=== PATIENT | female | born 1980 | race Caucasian/White ===

== ENCOUNTER 2017-05-26 19:41 | Inpatient (IN) | payer MEDICAID ==
[2017-05-26] MEDS ORDERED: LACTATED RINGERS 500 ML IV ONE (20:02)
[2017-05-26] MEDS ORDERED: ZOFRAN IV PRN (22:02)
[2017-05-26] MEDS ORDERED: MILK OF MAGNESIA PO PRN (22:02)
[2017-05-26] MEDS ORDERED: COLACE PO PRN (22:02)
[2017-05-26] MEDS ORDERED: TYLENOL PO PRN (22:02)
[2017-05-26] MEDS ORDERED: POLYCILLIN/NS 2 GM/100 ML 2 GM/100 ML BAG IV ONE (22:02)
--- NOTE | 2017-05-26 22:06 | Ultrasound Report ---
FINAL REPORT PROCEDURE: Obstetrical ultrasound. TECHNIQUE: Real-time transabdominal sonography of the uterus, placenta, amniotic fluid, adnexa, and fetus was performed with image documentation. Measurements were obtained to determine age/size. M-mode Doppler was used to document heartbeat. CPT 68474 HISTORY: No care for 6 weeks, was in [place], estimated weight and amniotic fluid index. labor. COMPARISON: No prior studies are available for comparison. FINDINGS: There is a single intrauterine fetus in cephalic presentation. Cardiac activity is documented at 135 beats per minute. There are no obvious congenital anomalies. A detailed anatomical survey was not performed. The amniotic fluid volume appears decreased. The amniotic fluid index measures 3.7 centimeters. The placenta is anterior in location, grade 0, with no evidence of placenta previa. The cervical length is approximately 3.3 centimeters. The measured parameters are as follows: Biparietal diameter 8.4 centimeters, head circumference 31.1 centimeters, abdominal circumference 29.3 centimeters, femur length 6.6 centimeters. The calculated menstrual age is 34 weeks 0 days. The estimated date of confinement is 07/07/2017. The estimated weight is 2244 grams. IMPRESSION: Single viable fetus in cephalic presentation with a menstrual age of 34 weeks 0 days. Oligohydramnios.
--- NOTE | 2017-05-26 22:08 | Ultrasound Report ---
FINAL REPORT PROCEDURE: Ultrasound biophysical profile without nonstress test. TECHNIQUE: Sonographic evaluation for breathing, movement, tone, and amniotic fluid volume was performed. CPT 11415 HISTORY: No movement. COMPARISON: No prior studies are available for comparison. FINDINGS: Amniotic fluid volume: 2. breathin. movement: 0. tone: 0. Score: 4 out of 8. IMPRESSION: Abnormally low biophysical profile.
--- NOTE | 2017-05-26 22:11 | History and Physical Report ---
History of Present Illness Date of examination: 05/26/17 Date of admission: 05/26/17 20:46 Chief complaint: Decreased movement History of present illness: Pt is a 36yo HF EDC 07/15/17; EGA 32 6/7 weeks presents to [facility] from the office for complaints of decreased movement. She received care at [facility] since 9 weeks, and course has been complicated by AMA, Obesity and Gestational DM. She recently returned from [place] and complained of decreased movement. BPP 4/8 Past History Past Medical History: diabetes (diet controlled) Past Surgical History: no surgical history Family/Genetic History: none Social history: no significant social history, single - Obstetrical History Expected Date of Delivery: 07/15/17 Actual Gestation: 33 Week(s) 0 Day(s) : 3 Medications and Allergies Allergies Allergy/AdvReac Type Severity Reaction Status Date / Time No Known Allergies Allergy Unverified 05/26/17 19:42 Review of Systems All systems: negative - Physical Exam Breasts: Positive: deferred Cardiovascular: Regular rate - Obstetrical FHR: category 1 Uterine Contraction Pattern: Irregular Results Result Diagrams: 05/26/17 22:10 05/26/17 22:10 Abnormal lab results 05/26/17 Range/Units 20:04 POC Glucose 123 H (70-105) All other labs normal. Ultrasound: report reviewed ([place], cephalic, EFW 2244gms, LAURA 3.66, BPP 4/8 ) Assessment and Plan - Patient Problems (1) 33 weeks gestation of Onset Date: 05/26/17 Current Visit: Yes Status: Acute Plan to address problem: A: IUP @ 33 0/7 weeks Oligohydramnios Diabetes mellitus -Type 2 - uncontrolled Non-reassuring surveillance with reactive NST P: Admit to L&D for Observation Begin IV fluids, antibiotics and steroids Repeat BPP with LAURA in am Deliver with worsening surveillance (2) Oligohydramnios in [place] in third trimester Onset Date: 05/26/17 Current Visit: Yes Status: Acute (3) Diabetes mellitus affecting in third trimester Onset Date: 05/26/17 Current Visit: Yes Status: Acute
[2017-05-26] MEDS: CELESTONE SOLUSPAN IM SCH (22:42)
[2017-05-26 23:00] LABS: Basophils % (Auto) 0.2 % (0.0-1.8); Eosinophils % (Auto) 0.7 % (0.0-4.3); Hematocrit 40.5 % (30.3-42.9); Hemoglobin 13.8 gm/dl (10.1-14.3); Mean Corpuscular HGB Conc 34 % (30-34); Mean Corpuscular Hemoglobin 31 pg (28-32); Mean Corpuscular Volume 90 fl (79-97); Platelet Count 164 K/mm3 (140-440); Red Cell Distribution Width 14.9 % (13.2-15.2)
[2017-05-26] MEDS: LACTATED RINGERS 1,000 ML IV SCH (23:00)
[2017-05-26 23:26] LABS: Anion Gap 20 mmol/L; Blood Urea Nitrogen 10 mg/dL (7-17); Calcium 9.3 mg/dL (8.4-10.2); Carbon Dioxide 20 mmol/L (22-30); Chloride 104.7 mmol/L (98-107); Glucose 101 mg/dL (65-100); Sodium 141 mmol/L (137-145)
[2017-05-27] MEDS: POLYCILLIN/NS 1 GM/50 ML 1 GM/50 ML BAG IV SCH ×6 (03:39→22:06)
[2017-05-27 06:02] LABS: HIV-1 Antigen p24 Non React (Non React); HIVR-1/2 Ab Non React (Non React)
[2017-05-27] MEDS: PRENATAL VITAMIN PO SCH (10:17)
[2017-05-27] MEDS: LACTATED RINGERS 1,000 ML IV SCH ×2 (10:17→19:56)
--- NOTE | 2017-05-27 10:44 | Ultrasound Report ---
ULTRASOUND BIOPHYSICAL PROFILE: History: well being Technique: Transabdominal ultrasound with Doppler interrogation. 2 - breathing movements 2 - movements 2 - posture and tone 2 - Qualitative amniotic fluid volume 8 - TOTAL SCORE OF POSSIBLE 8 Heart Rate (bpm) 127
--- NOTE | 2017-05-27 10:44 | Progress Note ---
Assessment and Plan - Patient Problems (1) 33 weeks gestation of Onset Date: 05/26/17 Current Visit: Yes Status: Acute Plan to address problem: A: IUP @ 33 0/7 weeks Oligohydramnios Diabetes mellitus -Type 2 - uncontrolled Reassuring surveillance today Received Betamethasone #1 P: Continue present management Betamethasone #2 due @ 2300 Obtain APA consultation (2) Oligohydramnios in [place] in third trimester Onset Date: 05/26/17 Current Visit: Yes Status: Acute (3) Diabetes mellitus affecting in third trimester Onset Date: 05/26/17 Current Visit: Yes Status: Acute Subjective - Subjective Date of service: 05/27/17 Principal diagnosis: IUP @ 33 0/7 weeks; Olig[place] Interval history: Pt is feeling well without complaints. +FM Denies contractions. Received Betamethasone #1 @ 2300. Patient reports: loss of fluid, movement normal, no new complaints, no vaginal bleeding, no contractions Objective - Vital Signs Vital Signs: Vital Signs - 12hr 05/26/17 05/26/17 05/26/17 22:47 22:59 23:00 Pulse Rate 79 79 Respiratory 20 Rate Blood Pressure 115/71 115/71 O2 Sat by Pulse 93 Oximetry 05/26/17 05/26/17 05/26/17 23:01 23:06 23:11 Pulse Rate 75 89 90 Respiratory Rate Blood Pressure O2 Sat by Pulse 92 96 94 Oximetry 05/26/17 05/26/17 05/26/17 23:16 23:21 23:26 Pulse Rate 86 78 87 Respiratory Rate Blood Pressure O2 Sat by Pulse 91 93 92 Oximetry 05/26/17 05/26/17 05/26/17 23:31 23:34 23:36 Pulse Rate 76 82 76 Respiratory Rate Blood Pressure O2 Sat by Pulse 91 93 90 Oximetry 05/27/17 05/27/17 05/27/17 01:54 05:19 10:35 Pulse Rate 87 85 72 Respiratory Rate Blood Pressure 102/55 101/55 94/53 O2 Sat by Pulse 96 Oximetry - Exam Cardiovascular: Regular rate Lungs: Clear to auscultation Abdomen: Present: normal appearance, soft Uterus: Present: normal FHR: category 1 Uterine Contraction Monitor Mode: External Uterine Contraction Pattern: Absent - Labs Labs: Abnormal Labs 05/26/17 05/26/17 20:04 22:10 Carbon Dioxide 20 L Creatinine 0.5 L Glucose 101 H POC Glucose 123 H Laboratory Results - last 24 hr 05/26/17 05/26/17 05/26/17 20:04 22:10 22:10 WBC 10.0 RBC 4.50 Hgb 13.8 Hct 40.5 MCV 90 MCH 31 MCHC 34 RDW 14.9 Plt Count 164 Lymph % (Auto) 23.1 [place] % (Auto) 6.8 Eos % (Auto) 0.7 Baso % (Auto) 0.2 Lymph # 2.3 [place] # 0.7 Eos # 0.1 Baso # 0.0 Seg Neutrophils % 69.2 Seg Neutrophils # 6.9 Sodium 141 Potassium 4.0 Chloride 104.7 Carbon Dioxide 20 L Anion Gap 20 BUN 10 Creatinine 0.5 L Estimated GFR > 60 BUN/Creatinine Ratio 20.00 Glucose 101 H POC Glucose 123 H Calcium 9.3 Hep Bs Antigen Hepatitis C Antibody HIV 1&2 Antibody Rapid HIV P24 Antigen Rubella IgG Antibody Blood Type Antibody Screen ALYSSA Antibody Screen 05/26/17 05/27/17 05/27/17 22:10 03:46 03:46 WBC RBC Hgb Hct MCV MCH MCHC RDW Plt Count Lymph % (Auto) [place] % (Auto) Eos % (Auto) Baso % (Auto) Lymph # [place] # Eos # Baso # Seg Neutrophils % Seg Neutrophils # Sodium Potassium Chloride Carbon Dioxide Anion Gap BUN Creatinine Estimated GFR BUN/Creatinine Ratio Glucose POC Glucose Calcium Hep Bs Antigen Non-reactive Hepatitis C Antibody Non-reactive HIV 1&2 Antibody Rapid HIV P24 Antigen Rubella IgG Antibody Immune Blood Type O POSITIVE Antibody Screen TNR ALYSSA Antibody Screen Negative 05/27/17 03:46 WBC RBC Hgb Hct MCV MCH MCHC RDW Plt Count Lymph % (Auto) [place] % (Auto) Eos % (Auto) Baso % (Auto) Lymph # [place] # Eos # Baso # Seg Neutrophils % Seg Neutrophils # Sodium Potassium Chloride Carbon Dioxide Anion Gap BUN Creatinine Estimated GFR BUN/Creatinine Ratio Glucose POC Glucose Calcium Hep Bs Antigen Hepatitis C Antibody HIV 1&2 Antibody Rapid Non react HIV P24 Antigen Non react Rubella IgG Antibody Blood Type Antibody Screen ALYSSA Antibody Screen - Results US- obstetric: report reviewed (BPP 06/06 - 05/27/17; LAURA 5.8)
--- NOTE | 2017-05-27 10:47 | Ultrasound Report ---
ULTRASOUND OB LIMITED History: well being Technique: Transabdominal ultrasound with Doppler interrogation. Gestation: Single Position: Cephalic Amniotic Fluid: Decreased LAURA = 5.8 cm Placenta: Anterior, left lateral Placental Grade: 0 The inferior edge of the placenta appears to be low lying suggesting a marginal previa. Heart Rate: 128 BPM Cervical length: Obscured
--- NOTE | 2017-05-27 14:18 | Event Note ---
Date: 05/27/[address] Kaur who wants a spec exam to rule out rupture, HA1C to be done , diet recommendations (2199 ADA diet in progress and fasting and 2 HR PP FS already ordered. Spec exam done, yellow discharge present, negative fern, nitrazine neg. She gives no history of leaking fluid. He plans to see her tomorrow. She was informed that we are gathering data to make a plan for her care and that she may be here a couple more days.
[2017-05-27] MEDS: CELESTONE SOLUSPAN IM SCH (22:06)
[2017-05-28] MEDS: POLYCILLIN/NS 1 GM/50 ML 1 GM/50 ML BAG IV SCH ×3 (02:04→10:16)
[2017-05-28] MEDS: LACTATED RINGERS 1,000 ML IV SCH (05:02)
[2017-05-28] MEDS: PRENATAL VITAMIN PO SCH (10:15)
--- NOTE | 2017-05-28 10:53 | Ultrasound Report ---
ULTRASOUND OB LIMITED History: well being Technique: Transabdominal ultrasound with Doppler interrogation. Gestation: Single Position: Cephalic Amniotic Fluid: Decreased LARUA = 5.6 cm Placenta: Anterior, left lateral Placental Grade: 0 The inferior edge of the placenta is visualized on today's examination. There is no evidence for previa. Heart Rate: 124 BPM
--- NOTE | 2017-05-28 10:54 | Ultrasound Report ---
ULTRASOUND BIOPHYSICAL PROFILE: History: well being Technique: Transabdominal ultrasound with Doppler interrogation. 2 - breathing movements 0 - movements 0 - posture and tone 2 - Qualitative amniotic fluid volume 4 - TOTAL SCORE OF POSSIBLE 8 Heart Rate (bpm) 133
[2017-05-28] MEDS ORDERED: BICITRA PO ONE ×2 (11:35→11:45)
[2017-05-28] MEDS ORDERED: REGLAN IV ONE ×2 (11:35→11:45)
[2017-05-28] MEDS ORDERED: PEPCID IV ONE ×2 (11:35→11:45)
--- NOTE | 2017-05-28 11:45 | Progress Note ---
Assessment and Plan - Patient Problems (1) 33 weeks gestation of Onset Date: 05/26/17 Current Visit: Yes Status: Acute Plan to address problem: A: IUP @ 33 1/7 weeks Oligohydramnios Diabetes mellitus -Type 2 - uncontrolled Non-Reassuring surveillance today Received Betamethasone #2 P: Will deliver SANDI as per APA recommendations Consent signed for C Section and anesthesia aware. (2) Oligohydramnios in [place] in third trimester Onset Date: 05/26/17 Current Visit: Yes Status: Acute (3) Diabetes mellitus affecting in third trimester Onset Date: 05/26/17 Current Visit: Yes Status: Acute Subjective - Subjective Date of service: 05/28/17 Principal diagnosis: IUP @ 33 1/7 weeks; Olig[place] Interval history: Pt is feeling well without complaints. +FM Denies contractions. Received Betamethasone #2 @ 2300. Repeat BPP 02/04 and NR-NST = 02/06. Dr Kaur states with LAURA 5.6 her BPP should be /10 and she needs to be delivered SANDI. Patient reports: loss of fluid, movement normal, no new complaints, no vaginal bleeding, no contractions Objective - Vital Signs Vital Signs: Vital Signs - 12hr 05/28/17 05/28/17 05/28/17 02:07 04:10 05:04 Temperature 97.6 F 97.4 F L Pulse Rate 90 79 87 Respiratory 18 18 Rate Blood Pressure 100/56 95/44 95/44 O2 Sat by Pulse 96 Oximetry 05/28/17 05/28/17 05/28/17 05:08 05:09 07:37 Temperature Pulse Rate 86 81 73 Respiratory Rate Blood Pressure 105/54 O2 Sat by Pulse 94 94 97 Oximetry 05/28/17 05/28/17 05/28/17 07:40 07:42 07:47 Temperature 97 F L Pulse Rate 72 77 71 Respiratory 20 Rate Blood Pressure 105/54 O2 Sat by Pulse 97 97 Oximetry 05/28/17 05/28/17 05/28/17 07:52 07:57 08:02 Temperature Pulse Rate 79 74 72 Respiratory Rate Blood Pressure O2 Sat by Pulse 96 97 96 Oximetry 05/28/17 05/28/17 05/28/17 08:07 08:12 08:17 Temperature Pulse Rate 80 71 79 Respiratory Rate Blood Pressure O2 Sat by Pulse 96 97 96 Oximetry 05/28/17 05/28/17 05/28/17 08:29 08:34 08:39 Temperature Pulse Rate 81 74 89 Respiratory Rate Blood Pressure O2 Sat by Pulse 93 96 96 Oximetry 05/28/17 05/28/17 05/28/17 08:44 08:45 08:49 Temperature Pulse Rate 83 94 H 80 Respiratory Rate Blood Pressure O2 Sat by Pulse 95 94 97 Oximetry 05/28/17 05/28/17 05/28/17 08:54 08:59 09:04 Temperature Pulse Rate 100 H 79 77 Respiratory Rate Blood Pressure O2 Sat by Pulse 94 95 97 Oximetry 05/28/17 05/28/17 05/28/17 09:09 09:14 09:17 Temperature Pulse Rate 74 75 78 Respiratory Rate Blood Pressure O2 Sat by Pulse 96 96 94 Oximetry 05/28/17 05/28/17 05/28/17 09:19 09:22 09:24 Temperature Pulse Rate 91 H 78 76 Respiratory Rate Blood Pressure O2 Sat by Pulse 95 94 95 Oximetry 05/28/17 05/28/17 05/28/17 09:29 09:34 09:39 Temperature Pulse Rate 95 H 73 82 Respiratory Rate Blood Pressure O2 Sat by Pulse 98 97 96 Oximetry 05/28/17 05/28/17 05/28/17 09:44 09:49 09:54 Temperature Pulse Rate 88 75 82 Respiratory Rate Blood Pressure O2 Sat by Pulse 97 97 96 Oximetry 05/28/17 05/28/17 05/28/17 09:59 10:04 10:09 Temperature Pulse Rate 94 H 72 108 H Respiratory Rate Blood Pressure O2 Sat by Pulse 96 96 99 Oximetry 05/28/17 05/28/17 05/28/17 10:11 10:13 10:14 Temperature 97 F L Pulse Rate 83 98 H 81 Respiratory 20 Rate Blood Pressure 105/57 105/57 O2 Sat by Pulse 96 Oximetry 05/28/17 05/28/17 05/28/17 10:19 10:24 10:30 Temperature Pulse Rate 77 82 79 Respiratory Rate Blood Pressure O2 Sat by Pulse 96 96 96 Oximetry 05/28/17 05/28/17 05/28/17 10:35 10:38 10:40 Temperature Pulse Rate 85 83 83 Respiratory Rate Blood Pressure O2 Sat by Pulse 95 94 95 Oximetry 05/28/17 05/28/1705/28/17 10:44 10:45 10:49 Temperature Pulse Rate 77 75 74 Respiratory Rate Blood Pressure O2 Sat by Pulse 94 94 94 Oximetry 05/28/17 05/28/17 05/28/17 10:50 10:54 10:55 Temperature Pulse Rate 73 74 74 Respiratory Rate Blood Pressure O2 Sat by Pulse 95 94 95 Oximetry 05/28/17 05/28/17 05/28/17 11:00 11:05 11:08 Temperature Pulse Rate 76 79 73 Respiratory Rate Blood Pressure O2 Sat by Pulse 94 95 94 Oximetry 05/28/17 11:10 Temperature Pulse Rate 74 Respiratory Rate Blood Pressure O2 Sat by Pulse 94 Oximetry - Exam Uterus: Present: normal FHR: category 2 - Labs Labs: Abnormal Labs 05/26/17 05/26/17 05/27/17 20:04 22:10 10:40 Carbon Dioxide 20 L Creatinine 0.5 L Glucose 101 H POC Glucose 123 H 160 H 05/27/17 05/27/17 05/28/17 14:09 19:01 06:04 Carbon Dioxide Creatinine Glucose POC Glucose 173 H 113 H 129 H 05/28/17 10:26 Carbon Dioxide Creatinine Glucose POC Glucose 161 H Laboratory Results - last 24 hr 05/27/17 05/27/17 05/27/17 03:46 10:40 14:09 POC Glucose 160 H 173 H Hemoglobin A1c RPR Nonreactive 05/27/17 05/27/17 05/28/17 17:54 19:01 06:04 POC Glucose 113 H 129 H Hemoglobin A1c 5.8 RPR 05/28/17 10:26 POC Glucose 161 H Hemoglobin A1c RPR - Results US- obstetric: report reviewed (BPP 02/04 and NR- NST = 02/06)
--- NOTE | 2017-05-28 11:50 | Anesthesia Consultation ---
Anesthesia Consult and Med Hx Date of service: 05/28/17 - Airway Anesthetic Teeth Evaluation: Good ROM Head & Neck: Adequate Mental/Hyoid Distance: Adequate Mallampati Class: Class II Intubation Access Assessment: Probably Good - Pulmonary Exam CTA: Yes - Cardiac Exam Cardiac Exam: RRR - Pre-Operative Health Status ASA Pre-Surgery Classification: ASA2 Proposed Anesthetic Plan: Spinal - Pulmonary Hx Asthma: No COPD: No Hx Pneumonia: No - Cardiovascular System Hx Hypertension: No - Central Nervous System Hx Seizures: No Hx Psychiatric Problems: No - Endocrine Hx Renal Disease: No Hx End Stage Renal Disease: No Hx Non-Insulin Dependent Diabetes: Yes Hx Hypothyroidism: No Hx Hyperthyroidism: No - Hematic Hx Anemia: No Hx Sickle Cell Disease: No - Other Systems Hx Alcohol Use: No
--- NOTE | 2017-05-28 11:50 | Anesthesia Day of Surgery ---
Anesthesia Day of Surgery - Day of Surgery Patient Examined: Yes Patient H&P Reviewed: Yes Patient is NPO: No (urgent procedure)
[2017-05-28] MEDS ORDERED: MORPHINE ONE (11:53)
[2017-05-28] MEDS ORDERED: ePHEDrine SULFATE ONE (11:54)
[2017-05-28] MEDS ORDERED: ANCEF/STERILE WATER 2 GM/20 ML 2 GM/20 ML SYRINGE IV NR ×2 (12:00)
[2017-05-28] MEDS ORDERED: PITOCin/NS 20 UNIT/1000ML DRIP 20 UNITS/1,000 ML BAG IV SCH ×3 (12:00→14:00)
[2017-05-28] MEDS ORDERED: LACTATED RINGERS 1,000 ML IV SCH ×2 (12:00)
[2017-05-28] MEDS ORDERED: NACL 0.9% IR ONE (12:20)
[2017-05-28] MEDS ORDERED: WATER FOR IRRIG STERILE IR ONE (12:20)
[2017-05-28] MEDS ORDERED: VERSED ONE (12:46)
[2017-05-28] MEDS ORDERED: TORADOL ONE (13:07)
--- NOTE | 2017-05-28 13:18 | Operative Report ---
Operative Report Operative Report: Date of procedure: 05/28/2017 Pre-operative diagnosis: 1. Intrauterine at 33-1/7 weeks 2. Oligohydramnios 3. Type 2 diabetes mellitus - uncontrolled 4. Non- reassuring surveillance Post-operative diagnosis: Same Procedure name(s): Primary low transverse section Surgeon: Alexis Gonzalez MD Spot Man: None Anesthesia: Spinal anesthesia by Dr. Ulises Block EBL: 600 mL's Findings: A 2280 g male Apgars 8 at 1 minute 9 at 5 minutes. Normal uterus. Normal tubes and ovaries bilaterally. Procedure: After the patient was prepped and draped in usual sterile fashion, and after satisfactory level of epidural anesthesia was obtained, the skin knife was used to make a transverse skin incision. The incision was excised down to layer of the fascia, which was nicked in the midline and extended laterally using the Bovie cautery. The rectus muscles were dissected off the rectus fascia both superiorly and inferiorly. The rectus bellies in the midline, and the peritoneum was entered under direct visualization. The peritoneal incision was extended superiorly and inferiorly. A bladder flap was created and the bladder blade was then placed. The uterus was scored in a curvilinear linear fashion, entered in the midline revealing clear amniotic fluid. The infant's head was delivered onto the surgical field, and the oropharynx and nasopharynx were bulb suctioned. The rest of the 's body was delivered, cord was doubly clamped and cut and the infant was handed to the waiting respiratory team. Cord blood was then obtained. The placenta was manually removed from the uterus, and the uterus removed from its normal anatomical position. After gentle uterine lavage, the incision was inspected and found to be without extensions. It was then closed in 2 layers using 0 Vicryl suture in a running interlocking fashion, the second layer imbricating the first. After good hemostasis was achieved, copious amounts or irrigation was performed, and the gutters were suctioned free of blood and blood clots. Tisseel sealant was sprayed across the uterine incision. The uterus was then returned to its normal anatomical position, and after excellent hemostasis assured, the peritoneum was reapproximated using 3-0 Vicryl suture in a running interlocking fashion, and then the rectus muscles were reapproximated using 3-0 Vicryl suture in a [id number] configuration. The fascia was then reapproximated using 0 Vicryl suture in running interlocking fashion. The subcutaneous layer was made hemostatic using Bovie cautery, the Tisseel sealant was sprayed across the fascial incision and the skin edges reapproximated using 4-0 Vicryl suture in a subcuticular fashion. Patient tolerated the procedure well was transported to recovery in stable condition.
[2017-05-28] MEDS ORDERED: NARCAN 0.4 MG/1 ML IV PRN (13:23)
[2017-05-28] MEDS ORDERED: SENOKOT PO PRN (13:23)
[2017-05-28] MEDS ORDERED: MYLICON PO PRN (13:23)
[2017-05-28] MEDS ORDERED: TORADOL IV PRN (13:23)
[2017-05-28] MEDS ORDERED: LANSINOH TP PRN (13:23)
[2017-05-28] MEDS ORDERED: PHENERGAN PR PRN (13:23)
[2017-05-28] MEDS ORDERED: NORCO 5/325 PO PRN (13:23)
[2017-05-28] MEDS ORDERED: TUCKS PAD TP PRN (13:23)
--- NOTE | 2017-05-28 13:32 | Post Anesthesia Evaluation ---
- Post Anesthesia Evaluation Patient Participated: Yes Airway Patent: Yes Stable Respiratory Function: Yes Nausea/Vomiting: No Temp > 96.8F: Yes Pain Manageable: Yes Adequeate Hydration: Yes Anesthesia Complications: No Block Receding Appropriately: Yes Patient on Ventilator: No
[2017-05-28] MEDS ORDERED: SODIUM CHLORIDE FLUSH SYRINGE 10 ML IV NR (14:00)
[2017-05-28] MEDS ORDERED: ANCEF/NS 1 GM/50 ML 1 GM/50 ML BAG IV SCH (14:00)
[2017-05-28] MEDS: ANCEF/NS 1 GM/50 ML 1 GM/50 ML BAG IV SCH (20:30)
[2017-05-28] MEDS: D5LR 1,000 ML IV SCH (21:08)
[2017-05-29 02:12] LABS: Hematocrit 34.4 % (30.3-42.9); Hemoglobin 11.5 gm/dl (10.1-14.3)
[2017-05-29] MEDS: ANCEF/NS 1 GM/50 ML 1 GM/50 ML BAG IV SCH (05:22)
[2017-05-29] MEDS: D5LR 1,000 ML IV SCH (05:32)
[2017-05-29] MEDS: MOTRIN PO PRN ×2 (05:33→13:46)
--- NOTE | 2017-05-29 09:41 | Progress Note ---
Assessment and Plan O: FBS 135 this am A: POD # 1 P: Continue post op care Subjective - Subjective Date of service: 05/29/17 Principal diagnosis: IUP @ 33 1/7 weeks; Oligo Patient reports: appetite normal : in NICU Objective - Vital Signs Latest vital signs: Vital Signs Temp Pulse Resp BP Pulse Ox 05/29/17 08:40 98.2 F 72 18 111/62 05/29/17 05:33 18 05/29/17 04:45 98.4 F 66 18 99/53 05/29/17 00:15 98.7 F 76 15 109/56 05/29/17 00:05 18 05/28/17 21:05 98.6 F 79 16 106/56 05/28/17 16:30 98.2 F 73 20 103/51 05/28/17 14:22 97.6 F 05/28/17 14:15 97.7 F 05/28/17 14:10 84 17 106/63 97 05/28/17 14:00 97.8 F 70 15 102/53 97 05/28/17 13:50 73 17 98/52 96 05/28/17 13:45 97.7 F 05/28/17 13:40 78 17 103/58 96 05/28/17 13:30 73 15 106/53 96 05/28/17 13:20 97.7 F 76 16 105/55 97 05/28/17 13:18 74 16 97 05/28/17 11:55 98.9 F 85 18 105/57 05/28/17 11:53 85 106/55 05/28/17 11:10 74 94 05/28/17 11:08 73 94 05/28/17 11:05 79 95 05/28/17 11:00 76 94 05/28/17 10:55 74 95 05/28/17 10:54 74 94 05/28/17 10:50 73 95 05/28/17 10:49 74 94 05/28/17 10:45 75 94 05/28/17 10:44 77 94 05/28/17 10:40 83 95 05/28/17 10:38 83 94 05/28/17 10:35 85 95 05/28/17 10:30 79 96 05/28/17 10:24 82 96 05/28/17 10:19 77 96 05/28/17 10:14 81 96 05/28/17 10:13 97 F L 98 H 20 105/57 05/28/17 10:11 83 105/57 05/28/17 10:09 108 H 99 05/28/17 10:04 72 96 05/28/17 09:59 94 H 96 05/28/17 09:54 82 96 05/28/17 09:49 75 97 05/28/17 09:44 88 97 Intake and Output 05/28/17 05/29/17 05/29/17 22:59 06:59 14:59 Intake Total 1510 1240 120 Output Total 1050 1650 Balance 460 -410 120 Intake: IV 550 1000 ANCEF/NS 1 GM/50 ML 1 gm 50 In 50 ml @ 100 mls/hr IV Q8H TIM Rx#:[id number] D5lr 1,000 ml @ 125 mls/ 500 1000 hr IV DIRECT TIM Rx#: [id number] Oral 840 120 Intake, Free Water 120 240 Output: Urine 1050 1650 Indwelling Catheter 1050 1200 Void 450 Other: Total, Intake Amount 480 120 Total, Output Amount 800 450 Voiding Method Indwelling Catheter - Exam Breasts: Present: deferred Cardiovascular: Present: Regular rate Lungs: Present: Clear to auscultation Abdomen: Present: soft Vulva: both: normal Uterus: Present: fundal height below umbilicus Extremities: Present: normal Deep Tendon Reflex Grade: Normal +2 Incision: Present: dressed - Labs Labs: Abnormal lab results 05/28/17 05/28/17 05/28/17 Range/Units 10:26 17:15 22:11 POC Glucose 161 H 124 H 112 H (70-105) 05/29/17 Range/Units 08:05 POC Glucose 135 H (70-105)
[2017-05-29] MEDS: FEOSOL PO SCH (10:15)
--- NOTE | 2017-05-29 10:35 | Progress Note ---
Subjective Date of service: 05/29/17 Principal diagnosis: IUP @ 33 1/7 weeks; Oligo Interval history: 1st POD after Patient is in the bed, comfortable. Pain is well controlled with pain meds. Ambulated well. No residual neurological deficit. No pruritus. No anesthesia complications Objective - Constitutional Vitals: Vital Signs - 12hr 05/29/17 05/29/17 05/29/17 00:05 00:15 04:45 Temperature 98.7 F 98.4 F Pulse Rate 76 66 Respiratory 18 15 18 Rate Blood Pressure 109/56 99/53 05/29/17 05/29/17 05:33 08:40 Temperature 98.2 F Pulse Rate 72 Respiratory 18 18 Rate Blood Pressure 111/62 - Labs CBC & Chem 7: 05/29/17 01:59 05/26/17 22:10 Labs: Abnormal lab results 05/28/17 05/28/17 05/29/17 Range/Units 17:15 22:11 08:05 POC Glucose 124 H 112 H 135 H (70-105)
[2017-05-29] MEDS ORDERED: M-M-R II VACCINE SUB-Q ONE (13:25)
[2017-05-29] MEDS ORDERED: BOOSTRIX IM ONE (13:25)
[2017-05-29] MEDS: PERCOCET 5/325 PO PRN ×2 (13:45→22:20)
[2017-05-30] MEDS: PERCOCET 5/325 PO PRN ×3 (05:28→17:40)
[2017-05-30] MEDS ORDERED: BOOSTRIX IM ONE (06:05)
--- NOTE | 2017-05-30 09:12 | Progress Note ---
Assessment and Plan A: POD #2 -stable P; Plan discharge in am Baby in NICU Subjective - Subjective Date of service: 05/30/17 Principal diagnosis: IUP @ 33 1/7 weeks; Oligo Patient reports: appetite normal : in NICU Objective - Vital Signs Latest vital signs: Vital Signs Temp Pulse Resp BP 05/30/17 08:14 98.4 F 76 20 104/60 05/30/17 05:28 18 05/30/17 00:00 98.6 F 69 16 110/69 05/29/17 22:20 20 05/29/17 16:15 98.2 F 78 18 101/57 05/29/17 12:30 97.9 F 71 19 93/58 Intake and Output 05/29/17 05/30/17 05/30/17 22:59 06:59 14:59 Intake Total 120 850 Balance 120 850 Intake: Oral 120 250 Intake, Free Water 600 Other: Total, Intake Amount 120 250 # Voids Indwelling Catheter 1 - Exam Breasts: Present: deferred Cardiovascular: Present: Regular rate Lungs: Present: Clear to auscultation Abdomen: Present: soft Vulva: both: normal Uterus: Present: fundal height below umbilicus Deep Tendon Reflex Grade: Normal +2
--- NOTE | 2017-05-30 09:14 | Discharge Summary ---
Providers - Providers Date of Admission: 05/26/17 20:46 Date of discharge: 05/31/17 Attending physician: KIEL SHARMA MD 05/27/17 10:44 Consult to Physician [CONS] Urgent Consulting Provider: KATI PASTRANA Reason For Exam: IUP @ 33 weeks; Oligo; Gest DM Place consult to:: Answering service Notified:: Answering service Phone number called:: [phone] Was contact made?: Yes If yes, spoke with:: Dolly Time called:: 10:47 Primary care physician: KIEL SHARMA MD Hospitalization Reason for admission: induction of labor (oligo, uncontrolled diabetes) Delivery: Procedure: primary low transverse Incision: intact Discharge diagnosis: delivery Kosse baby: male Condition at discharge: Good Disposition: [id number] TO HOME OR SELFCARE Plan - Discharge Medications Prescriptions: Ferrous Sulfate [Feosol 325 MG tab] 325 mg PO BID #60 tablet HYDROcodone/APAP 5-325 [[place] 5/325] 1 each PO Q6HR PRN #30 tablet PRN Reason: Pain Ibuprofen [Motrin] 800 mg PO Q8HR PRN #30 tablet PRN Reason: Moder Pain Unrelieved By [place] Vit W-Ca,Fe,FA(<1 mg) [ Vitamins] 1 each PO DAILY #30 tablet - Provider Discharge Summary Activity: routine, no sex for 6 weeks, no strenuous exercise Diet: routine Instructions: routine Additional instructions: [] Smoking cessation referral if applicable(refer to patient education folder for contact #) [] Refer to [facility] Booklet Call your doctor immediately for: * Fever > 100.5 * Heavy vaginal bleeding ( >1 pad per hour) * Severe persistent headache * Shortness of breath * Reddened, hot, painful area to leg or breast * Drainage or odor from incision. * Keep incision clean and dry at all times and follow doctor's instructions regarding bathing/showering - Follow up plan Follow up: [facility] [Provider Group] - 14 Days
[2017-05-30] MEDS: FEOSOL PO SCH (11:06)
[2017-05-30] MEDS: PRENATAL VITAMIN PO SCH (11:06)
[2017-05-30] MEDS: MOTRIN PO PRN ×2 (12:03→17:41)
[2017-05-31] MEDS: MOTRIN PO PRN ×2 (01:13→12:23)
[2017-05-31] MEDS: PERCOCET 5/325 PO PRN ×2 (01:13→12:23)
[2017-05-31] MEDS: PRENATAL VITAMIN PO SCH (12:23)
[2017-05-31] MEDS: FEOSOL PO SCH (12:23)
[2017-05-31 17:26] VITALS: BP 136/83
== END 2017-05-31 16:45 | disposition home or self-care (01) | DRG 765 ==
LOC: TRG 19:41 → LD 20:46 → OB 05-28 16:14
PROVIDERS: ADMIT Obstetrics & Gynecology; ATTEND Obstetrics & Gynecology
PROC: 10D00Z1 Extraction of Products of Conception, Low, Open Approach (ICD-10-PCS; principal; 2017-05-28)
PROC: 3E0234Z Introduction of Serum, Toxoid and Vaccine into Muscle, Percutaneous Approach (ICD-10-PCS; 2017-05-29)
DX: O41.03X0 Oligohydramnios, third trimester, not applicable or unspecified (principal); O60.14X0 Preterm labor third trimester with preterm delivery third trimester, not applicable or unspecified; O76 Abnormality in fetal heart rate and rhythm complicating labor and delivery; O99.214 Obesity complicating childbirth; E66.9 Obesity, unspecified; O24.429 Gestational diabetes mellitus in childbirth, unspecified control; Z3A.33 33 weeks gestation of pregnancy; Z37.0 Single live birth; O09.523 Supervision of elderly multigravida, third trimester; Z68.38 Body mass index [BMI] 38.0-38.9, adult; Z23 Encounter for immunization
CPT/HCPCS: 36415; 76805; 76815; 76819; 80048; 82962; 83036; 85014; 85018; 85025; 86592; 86706; 86762; 86803; 86850; 86900; 86901; 87806; 88307; 90471; 90715; 99211; A6250; C9250; G0463; J0290; J0690; J0702; J1885; J2250; J2270; J2590; J2765; J7120; J7121

== ENCOUNTER 2018-11-28 11:16 | Emergency (ER) | payer MEDICAID, OTHER ==
[2018-11-28 11:27] VITALS: BP 128/74
[2018-11-28] MEDS ORDERED: BABY ASPIRIN PO ONE (12:31)
[2018-11-28] MEDS ORDERED: PROVENTIL IH ONE (12:33)
[2018-11-28] MEDS ORDERED: ULTRAM PO ONE (12:33)
--- NOTE | 2018-11-28 13:10 | Emergency Department Report ---
ED General Adult HPI - General Chief complaint: Chest Pain Stated complaint: ABD PAIN Time Seen by Provider: 11/28/18 11:35 Source: patient, percher (Ms. Rich) Mode of arrival: Ambulatory Limitations: Language Barrier - History of Present Illness Initial comments: Patient presented to the emergency department after being seen at a clinic and [place], [place]. The patient has had left-sided chest pain for 10 days that is made worse with coughing and movement of her left forearm. Patient describes the pain as sharp in nature. The patient was diagnosed with influenza at the clinic this morning. Patient was sent to the emergency department for further evaluation -: Gradual Location: chest Radiation: non-radiation Severity scale (0 -10): 3 Quality: dull, constant Consistency: constant Improves with: none, rest Worsens with: movement Associated Symptoms: denies other symptoms Treatments Prior to Arrival: none - Related Data Previous Rx's Medication Instructions Recorded Last Taken Type Ferrous Sulfate [Feosol 325 MG tab] 325 mg PO BID #60 tablet 05/28/17 Unknown Rx HYDROcodone/APAP 5-325 [[place] 1 each PO Q6HR PRN #30 tablet 05/28/17 Unknown Rx 5/325] Ibuprofen [Motrin] 800 mg PO Q8HR PRN #30 tablet 05/28/17 Unknown Rx Vit Calc,Iron,Folic 1 each PO DAILY #30 tablet 05/28/17 Unknown Rx [ Vitamins] ALBUTEROL Inhaler(NF) [VENTOLIN 2 puff IH Q4HR PRN #1 inha 11/28/18 Unknown Rx Inhaler(NF)] Acetaminophen/Codeine [Tylenol 1 tab PO Q6H PRN #15 tab 11/28/18 Unknown Rx /Codeine # 3 tab] Ibuprofen [Motrin] 800 mg PO Q8HR PRN #30 tablet 11/28/18 Unknown Rx Oseltamivir [Tamiflu] 75 mg PO BID #10 cap 11/28/18 Unknown Rx levoFLOXacin [Levaquin] 750 mg PO QDAY #10 tablet 11/28/18 Unknown Rx Allergies Allergy/AdvReac Type Severity Reaction Status Date / Time No Known Allergies Allergy Verified 11/28/18 11:21 ED Review of Systems ROS: Stated complaint: ABD PAIN Other details as noted in HPI Comment: All other systems reviewed and negative Constitutional: denies: chills, fever Eyes: denies: eye pain, eye discharge, vision change ENT: denies: ear pain, throat pain Respiratory: denies: cough, shortness of breath, wheezing Cardiovascular: chest pain. denies: palpitations Endocrine: no symptoms reported Gastrointestinal: denies: abdominal pain, nausea, diarrhea Genitourinary: denies: urgency, dysuria, discharge Musculoskeletal: denies: back pain, joint swelling, arthralgia Skin: denies: rash, lesions Neurological: denies: headache, weakness, paresthesias Psychiatric: denies: anxiety, depression Hematological/Lymphatic: denies: easy bleeding, easy bruising ED Past Medical Hx - Past Medical History Previous Medical History?: No Hx Hypertension: No Hx Congestive Heart Failure: No Hx Diabetes: No Hx Deep Vein Thrombosis: No Hx Renal Disease: No Hx Sickle Cell Disease: No Hx Seizures: No Hx Asthma: No Hx COPD: No Hx HIV: No - Social History Smoking Status: Never Smoker Substance Use Type: None - Medications Home Medications: Home Medications Medication Instructions Recorded Confirmed Last Taken Type Ferrous Sulfate [Feosol 325 MG tab] 325 mg PO BID #60 tablet 05/28/17 Unknown Rx HYDROcodone/APAP 5-325 [[place] 1 each PO Q6HR PRN #30 tablet 05/28/17 Unknown Rx 5/325] Ibuprofen [Motrin] 800 mg PO Q8HR PRN #30 tablet 05/28/17 Unknown Rx Vit Calc,Iron,Folic 1 each PO DAILY #30 tablet 05/28/17 Unknown Rx [ Vitamins] ALBUTEROL Inhaler(NF) [VENTOLIN 2 puff IH Q4HR PRN #1 inha 11/28/18 Unknown Rx Inhaler(NF)] Acetaminophen/Codeine [Tylenol 1 tab PO Q6H PRN #15 tab 11/28/18 Unknown Rx /Codeine # 3 tab] Ibuprofen [Motrin] 800 mg PO Q8HR PRN #30 tablet 11/28/18 Unknown Rx Oseltamivir [Tamiflu] 75 mg PO BID #10 cap 11/28/18 Unknown Rx levoFLOXacin [Levaquin] 750 mg PO QDAY #10 tablet 11/28/18 Unknown Rx ED Physical Exam - General Limitations: Language Barrier General appearance: alert, in no apparent distress - Head Head exam: Present: atraumatic, normocephalic - Eye Eye exam: Present: normal appearance, PERRL, EOMI - ENT ENT exam: Present: mucous membranes moist - Neck Neck exam: Present: normal inspection - Respiratory Respiratory exam: Present: normal lung sounds bilaterally, chest wall tenderness (TTP of the left chest wall and ribs 4 through 6 ). Absent: respiratory distress, wheezes, rales - Cardiovascular Cardiovascular Exam: Present: regular rate, normal rhythm. Absent: systolic murmur, diastolic murmur, rubs, gallop - GI/Abdominal GI/Abdominal exam: Present: soft, normal bowel sounds. Absent: distended, tenderness - Extremities Exam Extremities exam: Present: normal inspection - Back Exam Back exam: Present: normal inspection - Neurological Exam Neurological exam: Present: alert, oriented X3, CN II-XII intact. Absent: motor sensory deficit - Psychiatric Psychiatric exam: Present: normal affect, normal mood - Skin Skin exam: Present: warm, dry, intact, normal color. Absent: rash ED Course Vital Signs 11/28/18 11/28/18 11:22 13:13 Temperature 98.9 F Pulse Rate 100 H Respiratory 16 19 Rate Blood Pressure 128/74 O2 Sat by Pulse 98 Oximetry ED Medical Decision Making - Lab Data Result diagrams: 11/28/18 12:49 11/28/18 12:49 Lab Results 11/28/18 11/28/18 11/28/18 Range/Units 12:49 12:49 12:49 WBC 15.1 H (4.5-11.0) K/mm3 RBC 4.81 (3.65-5.03) M/mm3 Hgb 13.9 (10.1-14.3) gm/dl Hct 41.8 (30.3-42.9) % MCV 87 (79-97) fl MCH 29 (28-32) pg MCHC 33 (30-34) % RDW 12.9 L (13.2-15.2) % Plt Count 280 (140-440) K/mm3 Lymph % (Auto) 10.7 L (13.4-35.0) % Kings % (Auto) 5.5 (0.0-7.3) % Eos % (Auto) 0.1 (0.0-4.3) % Baso % (Auto) 0.1 (0.0-1.8) % Lymph # 1.6 (1.2-5.4) K/mm3 Kings # 0.8 (0.0-0.8) K/mm3 Eos # 0.0 (0.0-0.4) K/mm3 Baso # 0.0 (0.0-0.1) K/mm3 Seg Neutrophils % 83.6 H (40.0-70.0) % Seg Neutrophils # 12.6 H (1.8-7.7) K/mm3 Sodium 134 L (137-145) mmol/L Potassium 4.4 (3.6-5.0) mmol/L Chloride 97.6 L (98-107) mmol/L Carbon Dioxide 22 (22-30) mmol/L Anion Gap 19 mmol/L BUN 8 (7-17) mg/dL Creatinine 0.6 L (0.7-1.2) mg/dL Estimated GFR > 60 ml/min BUN/Creatinine Ratio 13 % Glucose 114 H (65-100) mg/dL Calcium 9.2 (8.4-10.2) mg/dL Total Bilirubin 1.10 (0.1-1.2) mg/dL AST 16 (5-40) units/L ALT 20 (7-56) units/L Alkaline Phosphatase 129 (35-129) units/L Troponin T < 0.010 (0.00-0.029) ng/mL NT-Pro-B Natriuret Pep 95.86 (0-450) pg/mL Total Protein 8.5 H (6.3-8.2) g/dL Albumin 4.0 (3.9-5) g/dL Albumin/Globulin Ratio 0.9 % Lipase 14 (13-60) units/L HCG, Qual Negative (Negative) - Radiology Data Radiology results: report reviewed [facility] [address] [place] [address] XRay Report Signed Patient: GHASSAN LARKIN MR#: [id number] : 1980 Acct:[id number] Age/Sex: 38 / F ADM Date: 11/28/18 Loc: ED Attending Dr: Ordering Physician: SYDNEY HOLLY MD Date of Service: 11/28/18 Procedure(s): XR chest 1V ap Accession Number(s): [id number] cc: SYDNEY HOLLY MD Fluoro Time In Minutes: Portable chest: Chest pain. The left hemidiaphragm is elevated. There is a small left pleural effusion with blunted lateral costophrenic angle. It is unclear as to whether there may be some pulmonary consolidation at the medial left lung base. The chest otherwise appears generally clear bilaterally. The heart is normal in size. Impression: Left pleural effusion/basilar infiltrate. Transcribed By: FIORDALIZA Dictated By: ISRAEL HOPSON MD Electronically Authenticated By: ISRAEL HOPSON MD Signed Date/Time: 11/28/181405 DD/ 04 TD/TT: 11/28/181405 - Medical Decision Making Discussed results with the patient with percher present Critical care attestation.: If time is entered above; I have spent that time in minutes in the direct care of this critically ill patient, excluding procedure time. ED Disposition Clinical Impression: Influenza, Pneumonia Disposition: - TO HOME OR SELFCARE Is pt being admited?: No Does the pt Need Aspirin: No Condition: Stable Instructions: Community-acquired Pneumonia (ED) Additional Instructions: return if worse Prescriptions: Acetaminophen/Codeine [Tylenol /Codeine # 3 tab] 1 tab PO Q6H PRN #15 tab PRN Reason: pain ALBUTEROL Inhaler(NF) [VENTOLIN Inhaler(NF)] 2 puff IH Q4HR PRN #1 inha PRN Reason: Wheezing Ibuprofen [Motrin] 800 mg PO Q8HR PRN #30 tablet PRN Reason: pain levoFLOXacin [Levaquin] 750 mg PO QDAY #10 tablet Oseltamivir [Tamiflu] 75 mg PO BID #10 cap Referrals: LI HERNANDEZ MD [Primary Care Provider] - 3-5 Days Time of Disposition: 15:58
[2018-11-28 13:31] LABS: Basophils % (Auto) 0.1 % (0.0-1.8); Eosinophils % (Auto) 0.1 % (0.0-4.3); Hematocrit 41.8 % (30.3-42.9); Hemoglobin 13.9 gm/dl (10.1-14.3); Lymphocytes # (Auto) 1.6 K/mm3 (1.2-5.4); Lymphocytes % (Auto) 10.7 % (13.4-35.0); Mean Corpuscular HGB Conc 33 % (30-34); Mean Corpuscular Volume 87 fl (79-97); Monocytes # (Auto) 0.8 K/mm3 (0.0-0.8); Monocytes % (Auto) 5.5 % (0.0-7.3); Platelet Count 280 K/mm3 (140-440); Red Blood Count 4.81 M/mm3 (3.65-5.03); Red Cell Distribution Width 12.9 % (13.2-15.2)
[2018-11-28 13:41] LABS: Alanine Aminotransferase 20 units/L (7-56); BUN/Creatinine Ratio 13; Blood Urea Nitrogen 8 mg/dL (7-17); Hemolysis Index 5
[2018-11-28 14:03] LABS: Calcium 9.2 mg/dL (8.4-10.2)
--- NOTE | 2018-11-28 14:12 | XRay Report ---
Portable chest: Chest pain. The left hemidiaphragm is elevated. There is a small left pleural effusion with blunted lateral costophrenic angle. It is unclear as to whether there may be some pulmonary consolidation at the medial left lung base. The chest otherwise appears generally clear bilaterally. The heart is normal in size. Impression: Left pleural effusion/basilar infiltrate.
== END 2018-11-28 16:08 | disposition home or self-care (01) ==
LOC: ED 11:16
DX: J11.1 Influenza due to unidentified influenza virus with other respiratory manifestations (principal); J18.9 Pneumonia, unspecified organism
CPT/HCPCS: 36415; 71045; 80053; 83690; 83880; 84484; 84703; 85025; 93005; 93010; 94640